=== PATIENT | male | born 1975 | race American Indian/Alaskan Native ===

== ENCOUNTER 2018-03-24 02:38 | Inpatient (IN) | payer OTHER ==
[2018-03-24] MEDS ORDERED: ASPIRIN PO ONE (03:10)
[2018-03-24 03:26] LABS: Basophils # (Auto) 0.2 K/mm3 (0.0-0.1); Basophils % (Auto) 1.5 % (0.0-1.8); Eosinophils # (Auto) 0.4 K/mm3 (0.0-0.4); Eosinophils % (Auto) 3.8 % (0.0-4.3); Hematocrit 41.1 % (35.5-45.6); Hemoglobin 13.8 gm/dl (11.8-15.2); Lymphocytes # (Auto) 3.2 K/mm3 (1.2-5.4); Lymphocytes % (Auto) 29.9 % (13.4-35.0); Mean Corpuscular HGB Conc 34 % (32-34); Mean Corpuscular Hemoglobin 28 pg (28-32); Mean Corpuscular Volume 85 fl (84-94); Monocytes # (Auto) 1.1 K/mm3 (0.0-0.8); Monocytes % (Auto) 10.6 % (0.0-7.3); Platelet Count 323 K/mm3 (140-440); Red Blood Count 4.85 M/mm3 (3.65-5.03); Red Cell Distribution Width 16.8 % (13.2-15.2)
--- NOTE | 2018-03-24 03:29 | XRay Report ---
FINAL REPORT EXAM: XR CHEST ROUTINE 2V HISTORY: SOB TECHNIQUE: PA and lateral views of the chest were submitted. FINDINGS: The heart size is at the upper limits of normal. There are no localized infiltrates or effusions. Mild congestion still cannot be excluded. The bones and soft tissues do not show any acute changes. IMPRESSION: No localized infiltrates or effusions. Mild congestion still cannot be excluded.
[2018-03-24 03:43] LABS: Albumin 3.1 g/dL (3.9-5); Calcium 8.5 mg/dL (8.4-10.2)
[2018-03-24] MEDS ORDERED: CATAPRES PO ONE (04:18)
[2018-03-24 04:34] LABS: Bacteria,Urine 3+ /HPF (Negative); Bilirubin,Urine NEG (Negative); Blood,Urine SM (Negative); Color,Urine Yellow (Yellow); Urobilinogen,Urine < 2.0 mg/dL (<2.0)
[2018-03-24 04:38] LABS: Protein,Urine >500 mg/dL (Negative)
[2018-03-24] MEDS ORDERED: LASIX IV ONE (04:38)
[2018-03-24] MEDS ORDERED: NITRO-BID 2% TP ONE (04:41)
--- NOTE | 2018-03-24 05:00 | Emergency Department Report ---
ED Shortness of Breath HPI - General Chief Complaint: Chest Pain Stated Complaint: CHEST PAIN Time Seen by Provider: 03/24/18 04:30 Source: patient Mode of arrival: Ambulatory Limitations: No Limitations - History of Present Illness Initial Comments: 42-year-old male with a past medical history of obesity, sleep apnea, hypertension, diabetes and possible renal insufficiency presents to Hospital complaints of shortness of breath worsening for the past days. Patient is having trouble sleeping due to symptoms. His CPAP does help. Dyspnea worsens with exertion as well and positive associated lower extremity/ankle edema. Patient's been noncompliant with all medications since release from detention February 16. He denies chest pain. No previous echocardiogram or stress test. No pmd - Related Data Allergies Allergy/AdvReac Type Severity Reaction Status Date / Time No Known Allergies Allergy Verified 03/24/18 04:38 ED Review of Systems ROS: Stated complaint: CHEST PAIN Other details as noted in HPI Comment: All other systems reviewed and negative ED Past Medical Hx - Past Medical History Previous Medical History?: Yes Hx Hypertension: Yes Hx Diabetes: Yes Additional medical history: sleep Apnea/CPAP - Surgical History Past Surgical History?: No - Social History Smoking Status: Current Every Day Smoker Substance Use Type: Marijuana ED Physical Exam - General Limitations: No Limitations - Other Other exam information: General: No limitations, patient is alert in no acute distress Head exam: Atraumatic, normocephalic Eyes exam: Normal appearance, pupils equal reactive to light, extraocular movements intact ENT: Moist mucous membrane, normal oropharynx Neck exam: Normal inspection, full range of motion, no meningismus nontender Respiratory exam: Mild crackles at the bases Cardiovascular: Normal rate and rhythm, normal heart sounds Abdomen: Soft, nondistended, and nontender, with normal bowel sounds, no rebound, or guarding Extremity: Full range of motion him a lower extremity edema, no calf tenderness or leg asymmetry Back: Normal Inspection, full range of motion, no tenderness Neurologic: Alert, oriented x3, cranial nerves intact, no motor or sensory deficit Psychiatric: normal affect, normal mood Skin: Warm, dry, intact ED Course Vital Signs 03/24/18 03/24/18 03/24/18 02:37 04:03 04:16 Temperature 98.2 F Pulse Rate 93 H 85 Respiratory 18 18 Rate Blood Pressure 209/123 194/128 Blood Pressure [Left] O2 Sat by Pulse 97 98 Oximetry 05/13/18 05/13/18 05/13/18 04:19 04:21 04:26 Temperature 98.4 F 98.4 F Pulse Rate 84 84 84 Respiratory 20 20 Rate Blood Pressure 194/128 Blood Pressure 194/128 194/128 [Left] O2 Sat by Pulse 98 98 Oximetry 03/24/18 03/24/18 03/24/18 04:30 04:33 04:46 Temperature Pulse Rate 91 H 92 H Respiratory 21 15 Rate Blood Pressure 193/117 194/128 Blood Pressure [Left] O2 Sat by Pulse 98 98 97 Oximetry 03/24/18 04:51 Temperature Pulse Rate 87 Respiratory Rate Blood Pressure 187/114 Blood Pressure [Left] O2 Sat by Pulse Oximetry - Reevaluation(s) Reevaluation #1: 03/24/18 05:15 bipap initiated since pt c/o sob ED Medical Decision Making - Lab Data Result diagrams: 03/24/18 03:13 03/24/18 03:13 Lab Results 03/24/18 03/24/18 03/24/18 Range/Units 03:13 03:13 03:58 WBC 10.6 (4.5-11.0) K/mm3 RBC 4.85 (3.65-5.03) M/mm3 Hgb 13.8 (11.8-15.2) gm/dl Hct 41.1 (35.5-45.6) % MCV 85 (84-94) fl MCH 28 (28-32) pg MCHC 34 (32-34) % RDW 16.8 H (13.2-15.2) % Plt Count 323 (140-440) K/mm3 Lymph % (Auto) 29.9 (13.4-35.0) % [place] % (Auto) 10.6 H (0.0-7.3) % Eos % (Auto) 3.8 (0.0-4.3) % Baso % (Auto) 1.5 (0.0-1.8) % Lymph # 3.2 (1.2-5.4) K/mm3 [place] # 1.1 H (0.0-0.8) K/mm3 Eos # 0.4 (0.0-0.4) K/mm3 Baso # 0.2 H (0.0-0.1) K/mm3 Seg Neutrophils % 54.2 (40.0-70.0) % Seg Neutrophils # 5.8 (1.8-7.7) K/mm3 Sodium 139 (137-145) mmol/L Potassium 4.8 (3.6-5.0) mmol/L Chloride 104.9 (98-107) mmol/L Carbon Dioxide 24 (22-30) mmol/L Anion Gap 15 mmol/L BUN 22 H (9-20) mg/dL Creatinine 2.4 H (0.8-1.5) mg/dL Estimated GFR 30 ml/min BUN/Creatinine Ratio 9 % Glucose 178 H (75-100) mg/dL Calcium 8.5 (8.4-10.2) mg/dL Total Bilirubin 0.20 (0.1-1.2) mg/dL AST 15 (5-40) units/L ALT 17 (7-56) units/L Alkaline Phosphatase 88 (35-129) units/L Troponin T 0.019 (0.00-0.029) ng/mL NT-Pro-B Natriuret Pep (0-450) pg/mL Total Protein 6.2 L (6.3-8.2) g/dL Albumin 3.1 L (3.9-5) g/dL Albumin/Globulin Ratio 1.0 % Urine Color Yellow (Yellow) Urine Turbidity Clear (Clear) Urine pH 5.0 (5.0-7.0) Ur Specific [place] 1.014 (1.003-1.030) Urine Protein >500 (Negative) mg/dL Urine Glucose (UA) 150 (Negative) mg/dL Urine Ketones Neg (Negative) mg/dL Urine Blood Sm (Negative) Urine Nitrite Neg (Negative) Urine Bilirubin Neg (Negative) Urine Urobilinogen < 2.0 (<2.0) mg/dL Ur Leukocyte Esterase Neg (Negative) Urine WBC (Auto) 9.0 H (0.0-6.0) /HPF Urine RBC (Auto) 9.0 (0.0-6.0) /HPF U Epithel Cells (Auto) 1.0 (0-13.0) /HPF Urine Bacteria (Auto) 3+ (Negative) /HPF 03/24/18 Range/Units Unknown WBC (4.5-11.0) K/mm3 RBC (3.65-5.03) M/mm3 Hgb (11.8-15.2) gm/dl Hct (35.5-45.6) % MCV (84-94) fl MCH (28-32) pg MCHC (32-34) % RDW (13.2-15.2) % Plt Count (140-440) K/mm3 Lymph % (Auto) (13.4-35.0) % [place] % (Auto) (0.0-7.3) % Eos % (Auto) (0.0-4.3) % Baso % (Auto) (0.0-1.8) % Lymph # (1.2-5.4) K/mm3 [place] # (0.0-0.8) K/mm3 Eos # (0.0-0.4) K/mm3 Baso # (0.0-0.1) K/mm3 Seg Neutrophils % (40.0-70.0) % Seg Neutrophils # (1.8-7.7) K/mm3 Sodium (137-145) mmol/L Potassium (3.6-5.0) mmol/L Chloride (98-107) mmol/L Carbon Dioxide (22-30) mmol/L Anion Gap mmol/L BUN (9-20) mg/dL Creatinine (0.8-1.5) mg/dL Estimated GFR ml/min BUN/Creatinine Ratio % Glucose (75-100) mg/dL Calcium (8.4-10.2) mg/dL Total Bilirubin (0.1-1.2) mg/dL AST (5-40) units/L ALT (7-56) units/L Alkaline Phosphatase (35-129) units/L Troponin T (0.00-0.029) ng/mL NT-Pro-B Natriuret Pep 1418 H (0-450) pg/mL Total Protein (6.3-8.2) g/dL Albumin (3.9-5) g/dL Albumin/Globulin Ratio % Urine Color (Yellow) Urine Turbidity (Clear) Urine pH (5.0-7.0) Ur Specific [place] (1.003-1.030) Urine Protein (Negative) mg/dL Urine Glucose (UA) (Negative) mg/dL Urine Ketones (Negative) mg/dL Urine Blood (Negative) Urine Nitrite (Negative) Urine Bilirubin (Negative) Urine Urobilinogen (<2.0) mg/dL Ur Leukocyte Esterase (Negative) Urine WBC (Auto) (0.0-6.0) /HPF Urine RBC (Auto) (0.0-6.0) /HPF U Epithel Cells (Auto) (0-13.0) /HPF Urine Bacteria (Auto) (Negative) /HPF - EKG Data -: EKG Interpreted by Me EKG shows normal: sinus rhythm, axis (qrs 46), QRS complexes (qrsd 113), ST-T waves (lat and inv t wave inv) Rate: normal (90) - EKG Data When compared to previous EKG there are: previous EKG unavailable - Radiology Data Radiology results: report reviewed cxr IMPRESSION: No localized infiltrates or effusions. Mild congestion still cannot be excluded. - Medical Decision Making sob/+ chf new onset elevated bnp, + congestion cxr Lasix 40mg Nitro escobedo 1/2 inch htn noncomplance Clonidine 0.2mg renal insuf ? hx baseline unknown sleep apnea chronic bipap dm noncompliant glucose mildly elevated no previous card workup will be admitted for further treatment - Differential Diagnosis chf, mi, unstable angina, sleep apnea, htn emergency, pneumonia Critical Care Time: No Critical care attestation.: If time is entered above; I have spent that time in minutes in the direct care of this critically ill patient, excluding procedure time. ED Disposition Clinical Impression: HTN (hypertension), CHF (congestive heart failure), Renal insufficiency, Obesity, Sleep apnea, Noncompliance with medication regimen Disposition: OP ADMIT IP TO THIS HOSP Is pt being admited?: Yes Condition: Stable Time of Disposition: 05:02 (DR Cali/hosp)
[2018-03-24] MEDS ORDERED: SODIUM CHLORIDE FLUSH SYRINGE 10 ML IV PRN (05:27)
[2018-03-24] MEDS ORDERED: TYLENOL PO PRN (05:27)
[2018-03-24] MEDS ORDERED: D50W (25GM) Syringe IV PRN (05:27)
[2018-03-24] MEDS ORDERED: ZOFRAN IV PRN (05:27)
[2018-03-24] MEDS ORDERED: APRESOLINE IV PRN (05:54)
--- NOTE | 2018-03-24 05:59 | History and Physical Report ---
History of Present Illness Date of examination: 03/24/18 History of present illness: 42-year-old man history of hypertension, diabetes, sleep apnea, see my concern with complaints of shortness breath, PND and ankle extremity edema. He complains of phlegm, unclear what color it is. Since he was discharged from prison February 26, he has not taken any of his medications. Review of systems Constitutional: no weight loss, chills Ears, eyes, nose, mouth and throat: no nasal congestion, no nasal discharge, no sinus pressure, no vision change, no red eye. Neck: No neck pain or rigidity. Cardiovascular: no chest pain, palpitations Respiratory:+cough, shortness of breath Gastrointestinal: no abdominal pain, hematochezia Genitourinary : no dysuria, frequency , no hematuria Musculoskeletal: no joint swelling or muscle ache Integumentary: no rash, no pruritis Neurological: no parathesias, no numbness, no focal weakness Endocrine: no cold or heat intolerance, no polyuria or polydipsia Hematologic/Lymphatic: no easy bruising, no easy bleeding, no gland swelling Allergic/Immunologic: no urticaria, no angioedema. PAST MEDICAL HISTORY:hypertension, diabetes, sleep apnea PAST SURGICAL HISTORY: None SOCIAL HISTORY: Smokes cigars, marijuana use, no alcohol FAMILY HISTORY: Hypertension Medications and Allergies Allergies Allergy/AdvReac Type Severity Reaction Status Date / Time No Known Allergies Allergy Verified 03/24/18 04:38 Home Medications Medication Instructions Recorded Confirmed Last Taken Type No Known Home Medications [No 03/24/18 03/24/18 Unknown History Reported Home Medications] Active Meds: Active Medications Acetaminophen (Tylenol) 650 mg PO Q4H PRN PRN Reason: Pain MILD(1-3)/Fever >100.5/KATHLEEN Dextrose (D50w (25gm) Syringe) 50 ml IV PRN PRN PRN Reason: Hypoglycemia Enoxaparin Sodium (Lovenox) 40 mg SUB-Q QDAY@1000 [facility] Furosemide (Lasix) 40 mg IV 0600,1800 [facility] Hydralazine HCl (Apresoline) 5 mg IV Q6HR PRN PRN Reason: Hypertension Insulin Human Lispro (Humalog) 0 unit SUB-Q ACHS [facility]; Protocol Metoprolol Tartrate (Lopressor) 25 mg PO BID [facility] Ondansetron HCl (Zofran) 4 mg IV Q8H PRN PRN Reason: Nausea And Vomiting Sodium Chloride (Sodium Chloride Flush Syringe 10 Ml) 10 ml IV BID [facility] Sodium Chloride (Sodium Chloride Flush Syringe 10 Ml) 10 ml IV PRN PRN PRN Reason: LINE FLUSH Exam - Physical Exam Narrative exam: Gen. appearance: Patient lying in bed, no apparent distress HEENT: Normocephalic, atraumatic, pupils equally round and reactive to light, extraocular movement intact, and no sclericterus,. No JVD or thyromegaly or nodule,neck supple, no carotid bruit ,mucous membranes moist, no exudate or erythema Heart: S1, S2, regular rate and rhythm Lungs: Decreased breath sounds at bases bilaterally, breathing comfortable Abdomen: Positive bowel sounds, nontender, nondistended, no organomegaly Extremity: Trace ankle edema, no cyanosis, clubbing Skin: No rash, nodules, warm, dry Neuro: Oriented 3, cranial nerves II-12 intact, speech is fluent, motor and sensory intact - Constitutional Vitals: Temp Pulse Resp BP Pulse Ox 98.4 F 87 18 172/111 97 03/24/18 04:21 03/24/18 05:16 03/24/18 05:16 03/24/18 05:16 03/24/18 04:46 Results - Labs CBC & Chem 7: 03/24/18 03:13 03/24/18 03:13 Labs: Abnormal lab results 03/24/18 03/24/18 03/24/18 Range/Units 03:13 03:13 03:58 RDW 16.8 H (13.2-15.2) % [place] % (Auto) 10.6 H (0.0-7.3) % [place] # 1.1 H (0.0-0.8) K/mm3 Baso # 0.2 H (0.0-0.1) K/mm3 BUN 22 H (9-20) mg/dL Creatinine 2.4 H (0.8-1.5) mg/dL Glucose 178 H (75-100) mg/dL NT-Pro-B Natriuret Pep (0-450) pg/mL Total Protein 6.2 L (6.3-8.2) g/dL Albumin 3.1 L (3.9-5) g/dL Urine WBC (Auto) 9.0 H (0.0-6.0) /HPF 03/24/18 Range/Units Unknown RDW (13.2-15.2) % [place] % (Auto) (0.0-7.3) % [place] # (0.0-0.8) K/mm3 Baso # (0.0-0.1) K/mm3 BUN (9-20) mg/dL Creatinine (0.8-1.5) mg/dL Glucose (75-100) mg/dL NT-Pro-B Natriuret Pep 1418 H (0-450) pg/mL Total Protein (6.3-8.2) g/dL Albumin (3.9-5) g/dL Urine WBC (Auto) (0.0-6.0) /HPF - Imaging and Cardiology EKG: image reviewed Chest x-ray: image reviewed Assessment and Plan Assessment Hypertensive urgency, malignant ? CHF Diabetes Renal failure probably chronic Sleep apnea Plan Admit to medicine Start IV Lasix, aspirin, beta romel, no TONY inhibitor for now due to renal failure IV Hydralazine, check cardiac enzymes, echo, consult cardiology Check fingersticks initiate insulin sliding scale DVT prophylaxis cpap at night
[2018-03-24] MEDS: LASIX IV SCH ×2 (06:13→18:19)
[2018-03-24 06:21] LABS: Creatine Kinase MB 7.7 ng/mL (0.0-4.0)
[2018-03-24] MEDS: HumaLOG SUB-Q SCH ×4 (07:30→22:32)
--- NOTE | 2018-03-24 09:04 | Progress Note ---
Assessment and Plan Assessment and plan: Mr. Burk is a 42-year-old man w/ a history of hypertension, diabetes, sleep apnea, see my concern with complaints of shortness breath, PND and ankle extremity edema. He complains of phlegm, unclear what color it is. Since he was discharged from residential February 26, he has not taken any of his medications. (No prior hospitalizations here) 2v CXR, no infiltrates or effusion, mild congestion cannot be excluded proBNP 1418 Cr 2.4 D-Dimer elevated 724 Assessment Hypertensive urgency, malignant ? CHF Diabetes Renal failure probably chronic Sleep apnea Plan Admit to medicine Start IV Lasix, aspirin, beta romel, no TONY inhibitor for now due to renal failure IV Hydralazine, check cardiac enzymes, echo, consult cardiology Check fingersticks initiate insulin sliding scale DVT prophylaxis cpap at night get v/q scan due to elevated d-dimer get leg doppler History Interval history: Admitted Today Hospitalist Physical - Constitutional Vitals: Temp Pulse Resp BP Pulse Ox 98.4 F 80 19 156/111 99 03/24/18 04:21 03/24/18 08:00 03/24/18 08:00 03/24/18 08:00 03/24/18 07:30 Results - Labs CBC & Chem 7: 03/24/18 03:13 03/24/18 03:13 Labs: Laboratory Last Values WBC 10.6 K/mm3 (4.5-11.0) 03/24/18 03:13 RBC 4.85 M/mm3 (3.65-5.03) 03/24/18 03:13 Hgb 13.8 gm/dl (11.8-15.2) 03/24/18 03:13 Hct 41.1 % (35.5-45.6) 03/24/18 03:13 MCV 85 fl (84-94) 03/24/18 03:13 MCH 28 pg (28-32) 03/24/18 03:13 MCHC 34 % (32-34) 03/24/18 03:13 RDW 16.8 % (13.2-15.2) H 03/24/18 03:13 Plt Count 323 K/mm3 (140-440) 03/24/18 03:13 Lymph % (Auto) 29.9 % (13.4-35.0) 03/24/18 03:13 [place] % (Auto) 10.6 % (0.0-7.3) H 03/24/18 03:13 Eos % (Auto) 3.8 % (0.0-4.3) 03/24/18 03:13 Baso % (Auto) 1.5 % (0.0-1.8) 03/24/18 03:13 Lymph # 3.2 K/mm3 (1.2-5.4) 03/24/18 03:13 [place] # 1.1 K/mm3 (0.0-0.8) H 03/24/18 03:13 Eos # 0.4 K/mm3 (0.0-0.4) 03/24/18 03:13 Baso # 0.2 K/mm3 (0.0-0.1) H 03/24/18 03:13 Seg Neutrophils % 54.2 % (40.0-70.0) 03/24/18 03:13 Seg Neutrophils # 5.8 K/mm3 (1.8-7.7) 03/24/18 03:13 D-Dimer 724.01 ng/mlDDU (0-234) H 03/24/18 05:48 Sodium 139 mmol/L (137-145) 03/24/18 03:13 Potassium 4.8 mmol/L (3.6-5.0) 03/24/18 03:13 Chloride 104.9 mmol/L (98-107) 03/24/18 03:13 Carbon Dioxide 24 mmol/L (22-30) 03/24/18 03:13 Anion Gap 15 mmol/L 03/24/18 03:13 BUN 22 mg/dL (9-20) H 03/24/18 03:13 Creatinine 2.4 mg/dL (0.8-1.5) H 03/24/18 03:13 Estimated GFR 30 ml/min 03/24/18 03:13 BUN/Creatinine Ratio 9 % 03/24/18 03:13 Glucose 178 mg/dL (75-100) H 03/24/18 03:13 POC Glucose 161 (70-105) H 03/24/18 07:10 Calcium 8.5 mg/dL (8.4-10.2) 03/24/18 03:13 Total Bilirubin 0.20 mg/dL (0.1-1.2) 03/24/18 03:13 AST 15 units/L (5-40) 03/24/18 03:13 ALT 17 units/L (7-56) 03/24/18 03:13 Alkaline Phosphatase 88 units/L (35-129) 03/24/18 03:13 Total Creatine Kinase 805 units/L (55-170) H 03/24/18 05:48 CK-MB (CK-2) 7.7 ng/mL (0.0-4.0) H 03/24/18 05:48 CK-MB (CK-2) Rel Index 0.9 (0-4) 03/24/18 05:48 Troponin T 0.025 ng/mL (0.00-0.029) 03/24/18 05:48 NT-Pro-B Natriuret Pep 1418 pg/mL (0-450) H 03/24/18 Unknown Total Protein 6.2 g/dL (6.3-8.2) L 03/24/18 03:13 Albumin 3.1 g/dL (3.9-5) L 03/24/18 03:13 Albumin/Globulin Ratio 1.0 % 03/24/18 03:13 Urine Color Yellow (Yellow) 03/24/18 03:58 Urine Turbidity Clear (Clear) 03/24/18 03:58 Urine pH 5.0 (5.0-7.0) 03/24/18 03:58 Ur Specific [place] 1.014 (1.003-1.030) 03/24/18 03:58 Urine Protein >500 mg/dL (Negative) 03/24/18 03:58 Urine Glucose (UA) 150 mg/dL (Negative) 03/24/18 03:58 Urine Ketones Neg mg/dL (Negative) 03/24/18 03:58 Urine Blood Sm (Negative) 03/24/18 03:58 Urine Nitrite Neg (Negative) 03/24/18 03:58 Urine Bilirubin Neg (Negative) 03/24/18 03:58 Urine Urobilinogen < 2.0 mg/dL (<2.0) 03/24/18 03:58 Ur Leukocyte Esterase Neg (Negative) 03/24/18 03:58 Urine WBC (Auto) 9.0 /HPF (0.0-6.0) H 03/24/18 03:58 Urine RBC (Auto) 9.0 /HPF (0.0-6.0) 03/24/18 03:58 U Epithel Cells (Auto) 1.0 /HPF (0-13.0) 03/24/18 03:58 Urine Bacteria (Auto) 3+ /HPF (Negative) 03/24/18 03:58
[2018-03-24] MEDS ORDERED: APRESOLINE PO SCH (10:00)
[2018-03-24] MEDS ORDERED: LOVENOX SUB-Q SCH (10:00)
[2018-03-24] MEDS ORDERED: LOPRESSOR PO SCH (10:00)
[2018-03-24] MEDS: LOVENOX SUB-Q SCH (11:01)
[2018-03-24] MEDS: NORVASC PO SCH (11:01)
[2018-03-24] MEDS: BABY ASPIRIN PO SCH (11:02)
[2018-03-24] MEDS: SODIUM CHLORIDE FLUSH SYRINGE 10 ML IV SCH ×2 (11:04→22:33)
--- NOTE | 2018-03-24 11:59 | Consultation ---
History of Present Illness Consult date: 03/24/18 Requesting physician: MALIKA HEWITT Consult reason: congestive heart failure, other (hypertensive emergency) History of present illness: The patient has a history of hypertension. He claims that he ran out of his medications since 02/26/2018. Last night, he woke up to go to the restroom and suddenly developed shortness of breath. There was no chest pain. His blood pressure was severely elevated upon presentation. Past History Past Medical History: diabetes, hypertension, other (JULIAN) Past Surgical History: No surgical history Social history: single (no children), smoking, other (social drinker) Family history: denies: CAD Medications and Allergies Allergies Allergy/AdvReac Type Severity Reaction Status Date / Time No Known Allergies Allergy Verified 03/24/18 04:38 Home Medications Medication Instructions Recorded Confirmed Last Taken Type No Known Home Medications [No 03/24/18 03/24/18 Unknown History Reported Home Medications] Active Meds: Active Medications Acetaminophen (Tylenol) 650 mg PO Q4H PRN PRN Reason: Pain MILD(1-3)/Fever >100.5/KATHLEEN Amlodipine Besylate (Norvasc) 10 mg PO QDAY [facility] Last Admin: 03/24/18 11:01 Dose: 10 mg Aspirin (Baby Aspirin) 81 mg PO QDAY [facility] Last Admin: 03/24/18 11:02 Dose: 81 mg Dextrose (D50w (25gm) Syringe) 50 ml IV PRN PRN PRN Reason: Hypoglycemia Enoxaparin Sodium (Lovenox) 40 mg SUB-Q QDAY@1000 [facility] Last Admin: 03/24/18 11:01 Dose: 40 mg Furosemide (Lasix) 40 mg IV 0600,1800 [facility] Last Admin: 03/24/18 06:13 Dose: Not Given Hydralazine HCl (Apresoline) 100 mg PO BID [facility] Last Admin: 03/24/18 11:02 Dose: 100 mg Insulin Human Lispro (Humalog) 0 unit SUB-Q [facility]; Protocol Metoprolol Tartrate (Lopressor) 50 mg PO TID [facility] Ondansetron HCl (Zofran) 4 mg IV Q8H PRN PRN Reason: Nausea And Vomiting Sodium Chloride (Sodium Chloride Flush Syringe 10 Ml) 10 ml IV BID [facility] Last Admin: 03/24/18 11:04 Dose: 10 ml Sodium Chloride (Sodium Chloride Flush Syringe 10 Ml) 10 ml IV PRN PRN PRN Reason: LINE FLUSH Review of Systems Constitutional: no fever, no chills Ears, nose, mouth and throat: no ear pain, no ear discharge, no sore throat Cardiovascular: edema, shortness of breath, no chest pain, no palpitations Respiratory: shortness of breath, no cough, no hemoptysis Gastrointestinal: no abdominal pain, no nausea, no vomiting, no diarrhea, no constipation Genitourinary Male: no dysuria, no urinary frequency Musculoskeletal: no neck stiffness, no neck pain, no myalgias Integumentary: no rash, no pruritis Neurological: no weakness, no parathesias, no headaches Endocrine: no cold intolerance, no heat intolerance Hematologic/Lymphatic: no easy bruising, no easy bleeding Allergic/Immunologic: no urticaria, no wheezing Physical Examination Vital Signs Last Vital Signs Temp 98.2 F 03/24/18 09:00 Pulse 80 03/24/18 09:00 Resp 20 03/24/18 09:00 BP 163/117 03/24/18 11:02 Pulse Ox 97 03/24/18 09:25 General appearance: no acute distress HEENT: Positive: EOMI, Normocephaly, Mucus Membranes Moist Neck: Positive: neck supple, trachea midline Cardiac: Positive: Reg Rate and Rhythm, S1/S2 Lungs: Positive: clear to auscultation Neuro: Positive: Grossly Intact Abdomen: Positive: Soft, Active Bowel Sounds. Negative: Tender Skin: Positive: Clear. Negative: Rash Musculoskeletal: Normal Range of Motion Extremities: Present: normal, +1 Edema (pitting bilateral leg edema) Results 03/24/18 03:13 03/24/18 03:13 Cardiac Enzymes 03/24/18 03/24/18 Range/Units 03:13 05:48 AST 15 (5-40) units/L CK-MB (CK-2) 7.7 H (0.0-4.0) ng/mL CBC 03/24/18 Range/Units 03:13 WBC 10.6 (4.5-11.0) K/mm3 RBC 4.85 (3.65-5.03) M/mm3 Hgb 13.8 (11.8-15.2) gm/dl Hct 41.1 (35.5-45.6) % Plt Count 323 (140-440) K/mm3 Lymph # 3.2 (1.2-5.4) K/mm3 [place] # 1.1 H (0.0-0.8) K/mm3 Eos # 0.4 (0.0-0.4) K/mm3 Baso # 0.2 H (0.0-0.1) K/mm3 Comprehensive Metabolic Panel 03/24/18 Range/Units 03:13 Sodium 139 (137-145) mmol/L Potassium 4.8 (3.6-5.0) mmol/L Chloride 104.9 (98-107) mmol/L Carbon Dioxide 24 (22-30) mmol/L BUN 22 H (9-20) mg/dL Creatinine 2.4 H (0.8-1.5) mg/dL Glucose 178 H (75-100) mg/dL Calcium 8.5 (8.4-10.2) mg/dL AST 15 (5-40) units/L ALT 17 (7-56) units/L Alkaline Phosphatase 88 (35-129) units/L Total Protein 6.2 L (6.3-8.2) g/dL Albumin 3.1 L (3.9-5) g/dL - Imaging and Cardiology EKG: image reviewed EKG interpretations - Telemetry EKG Rhythm: Sinus Rhythm - EKG Sinus rhythms and dysrhythmias: sinus rhythm Repolarization changes or abnormalities: ST or T wave suggestive of ischemia Assessment and Plan Intravenous diuretics, optimize antihypertensive regimen, and obtain echocardiogram. - Patient Problems (1) Hypertensive emergency Current Visit: Yes Status: Acute (2) Acute heart failure Current Visit: Yes Status: Acute (3) CKD (chronic kidney disease) Current Visit: Yes Status: Chronic Qualifiers: Chronic kidney disease stage: stage 3 (moderate) Qualified Code(s): N18.3 - Chronic kidney disease, stage 3 (moderate) (4) Obstructive sleep apnea Current Visit: Yes Status: Chronic (5) Elevated d-dimer Current Visit: Yes Status: Acute (6) Diabetes mellitus Current Visit: Yes Status: Acute Qualifiers: Diabetes mellitus type: type 2
[2018-03-24 12:11] LABS: Creatine Kinase MB 7.2 ng/mL (0.0-4.0)
--- NOTE | 2018-03-24 15:07 | Nuclear Medicine Report ---
FINAL REPORT EXAM: NM LUNG SCAN PERF/VENT HISTORY: d-dimer elevated TECHNIQUE: Nuclear medicine lung VQ scan performed using approximately 15.0 mCi of xenon-133 gas and 5.0 mCi of technetium 99m MAA, respectively. Planar images of lungs obtained during both phases. PRIORS: Chest x-ray of same date. FINDINGS: Ventilation scan shows near homogenous radionuclide accumulation, with mild delayed washout, which may represent some chronic obstructive changes. Perfusion scan shows near homogeneous radionuclide accumulation conforming to the outlines of both lungs. No significant, segmental or mismatched defects identified. IMPRESSION: 1. Within normal limits.
[2018-03-24] MEDS: LOPRESSOR PO SCH ×2 (16:07→22:33)
[2018-03-24] MEDS: APRESOLINE PO SCH ×2 (16:08→22:33)
[2018-03-25] MEDS: LASIX IV SCH ×2 (05:12→19:54)
[2018-03-25 06:04] LABS: Basophils # (Auto) 0.1 K/mm3 (0.0-0.1); Basophils % (Auto) 1.2 % (0.0-1.8); Eosinophils # (Auto) 0.4 K/mm3 (0.0-0.4); Eosinophils % (Auto) 3.8 % (0.0-4.3); Hemoglobin 14.1 gm/dl (11.8-15.2); Lymphocytes # (Auto) 3.1 K/mm3 (1.2-5.4); Lymphocytes % (Auto) 32.1 % (13.4-35.0); Mean Corpuscular HGB Conc 34 % (32-34); Mean Corpuscular Hemoglobin 28 pg (28-32); Mean Corpuscular Volume 84 fl (84-94); Platelet Count 317 K/mm3 (140-440); Red Cell Distribution Width 17.2 % (13.2-15.2)
[2018-03-25 06:14] LABS: Calcium 8.5 mg/dL (8.4-10.2)
[2018-03-25] MEDS: HumaLOG SUB-Q SCH ×4 (08:00→22:34)
--- NOTE | 2018-03-25 10:19 | Progress Note ---
Assessment and Plan Acute on chronic kidney disease Consider renal consult Accelerated hypertension Continue amlodipine, hydralazine 100 TID, recommend changing metoprolol to carvedilol Follow up with Dr. Steiner [phone] as outpatient Congestive heart failure ECHO pending continue lasix 40 IV BID strict I/O Noncompliance Obesity Sleep apnea Diabetes Subjective Date of service: 03/25/18 Principal diagnosis: CHF, Accelerated HTN, KAREN Interval history: Patient is sitting up in bed without complaints. Reports that he does not know of any history of coronary disease but has been told in the past that he had kidney disease. The patient reports that the last time he was hospitalized was in [place]. The patient reports that he does not have a primary care provider , cell inspector, or assistant manager/embalmer. Objective Vital Signs Temp Pulse Resp BP Pulse Ox 03/25/18 04:59 98.4 F 79 18 166/115 97 03/25/18 00:01 87 18 162/108 94 03/25/18 00:00 84 98 03/24/18 23:26 93 H 18 97 03/24/18 22:00 87 03/24/18 20:32 97 03/24/18 20:31 99.0 F 87 18 168/107 98 03/24/18 16:07 169/117 03/24/18 15:23 98.0 F 86 20 195/118 95 03/24/18 11:02 163/117 03/24/18 11:01 163/117 - Physical Examination General: Appears Well, No Apparent Distress HEENT: Positive: EOMI, Normocephaly, Mucus Membranes Moist Neck: Positive: neck supple, trachea midline Cardiac: Positive: Reg Rate and Rhythm Lungs: Positive: Normal Exam, Normal Breath Sounds Neuro: Positive: Grossly Intact Abdomen: Positive: Soft, Active Bowel Sounds. Negative: Tender Skin: Positive: Clear. Negative: Rash Musculoskeletal: Normal Range of Motion Extremities: Present: normal, +1 Edema (pitting bilateral leg edema) - Labs and Meds Cardiac Enzymes 03/24/18 Range/Units 11:24 CK-MB (CK-2) 7.2 H (0.0-4.0) ng/mL CBC 03/25/18 Range/Units 05:20 WBC 9.6 (4.5-11.0) K/mm3 RBC 5.00 (3.65-5.03) M/mm3 Hgb 14.1 (11.8-15.2) gm/dl Hct 42.0 (35.5-45.6) % Plt Count 317 (140-440) K/mm3 Lymph # 3.1 (1.2-5.4) K/mm3 [place] # 1.0 H (0.0-0.8) K/mm3 Eos # 0.4 (0.0-0.4) K/mm3 Baso # 0.1 (0.0-0.1) K/mm3 Comprehensive Metabolic Panel 03/25/18 Range/Units 05:20 Sodium 138 (137-145) mmol/L Potassium 4.4 (3.6-5.0) mmol/L Chloride 101.3 (98-107) mmol/L Carbon Dioxide 25 (22-30) mmol/L BUN 25 H (9-20) mg/dL Creatinine 2.3 H (0.8-1.5) mg/dL Glucose 155 H (75-100) mg/dL Calcium 8.5 (8.4-10.2) mg/dL - Imaging and Cardiology EKG: image reviewed Nuclear stress test: report reviewed (V/Q Scan: low probability for PE) Echo: pending - EKG Sinus rhythms and dysrhythmias: sinus rhythm Repolarization changes or abnormalities: ST or T wave suggestive of ischemia
[2018-03-25] MEDS: NORVASC PO SCH (10:52)
[2018-03-25] MEDS: BABY ASPIRIN PO SCH (10:52)
[2018-03-25] MEDS: LOVENOX SUB-Q SCH (10:53)
[2018-03-25] MEDS: SODIUM CHLORIDE FLUSH SYRINGE 10 ML IV SCH ×2 (10:54→21:21)
[2018-03-25] MEDS: APRESOLINE PO SCH ×3 (10:57→21:17)
[2018-03-25] MEDS: COREG PO SCH ×2 (10:57→21:20)
--- NOTE | 2018-03-25 18:37 | Progress Note ---
Assessment and Plan - Hypertensive urgency, malignant Optimize BP control 2gm Na+ diet - Heart failure Pendign systolic function evaluation Continue with strict Is and OS Daily weight ACEI, BB, diuretic and spironolactone - T2DM SSI Consistent CHO diet. check A1c - Renal failure probably chronic Avoid nephrotoxic substance Renal diet, Renal US Nephrology consulted - Sleep apnea cpap at night DVT prophylaxis with levenox Subjective Date of service: 03/25/18 Principal diagnosis: CHF, Accelerated HTN, KAREN Interval history: still haivng shortness of breath Objective - Constitutional Vitals: Vital Signs - 12hr 03/25/18 03/25/18 03/25/18 10:00 10:52 10:57 Temperature Pulse Rate 80 81 81 Pulse Rate [ 90 Right Radial] Respiratory Rate Blood Pressure 169/110 169/110 Blood Pressure [Left] O2 Sat by Pulse Oximetry 03/25/18 03/25/18 03/25/18 11:09 13:00 14:59 Temperature 98.4 F 98.2 F 99.1 F Pulse Rate 87 93 H 99 H Pulse Rate [ Right Radial] Respiratory 20 18 20 Rate Blood Pressure 188/114 165/102 Blood Pressure 144/92 [Left] O2 Sat by Pulse 96 98 99 Oximetry General appearance: Present: no acute distress, well-nourished - EENT Eyes: PERRL, EOM intact - Neck Neck: supple, normal ROM - Respiratory Respiratory effort: normal Respiratory: bilateral: CTA - Cardiovascular Rhythm: regular Heart Sounds: Present: S1 & S2. Absent: gallop, rub Extremities: pulses intact, No edema, normal color, Full ROM - Gastrointestinal General gastrointestinal: Present: soft, non-tender, non-distended, normal bowel sounds - Integumentary Integumentary: clear, warm, dry - Musculoskeletal Musculoskeletal: 1, strength equal bilaterally - Psychiatric Psychiatric: memory intact, appropriate mood/affect, intact judgment & insight - Labs CBC & Chem 7: 03/25/18 05:20 03/25/18 05:20 Labs: Abnormal lab results 03/24/18 03/25/18 03/25/18 Range/Units 22:25 05:20 05:20 RDW 17.2 H (13.2-15.2) % Wilson % (Auto) 10.0 H (0.0-7.3) % Wilson # 1.0 H (0.0-0.8) K/mm3 BUN 25 H (9-20) mg/dL Creatinine 2.3 H (0.8-1.5) mg/dL Glucose 155 H (75-100) mg/dL POC Glucose 200 H (70-105) 03/25/18 03/25/18 03/25/18 Range/Units 07:01 11:16 15:05 RDW (13.2-15.2) % Wilson % (Auto) (0.0-7.3) % Wilson # (0.0-0.8) K/mm3 BUN (9-20) mg/dL Creatinine (0.8-1.5) mg/dL Glucose (75-100) mg/dL POC Glucose 158 H 139 H 178 H (70-105)
[2018-03-25] MEDS ORDERED: D50W (25GM) Syringe IV PRN (19:33)
[2018-03-25] MEDS: LOPRESSOR PO SCH (20:12)
[2018-03-25 20:28] LABS: Chol/HDL Ratio 8.18 %
[2018-03-25] MEDS: AMARYL PO SCH (21:18)
[2018-03-25 21:56] LABS: Creatinine,Urine 15.5 mg/dL (0.1-20.0)
[2018-03-25 22:21] LABS: Microalbumin/Creatinine Ratio 3625.8 ug/mg
[2018-03-26] MEDS: LASIX IV SCH ×2 (05:10→18:43)
[2018-03-26 07:11] LABS: Basophils # (Auto) 0.1 K/mm3 (0.0-0.1); Basophils % (Auto) 1.2 % (0.0-1.8); Eosinophils # (Auto) 0.4 K/mm3 (0.0-0.4); Hematocrit 44.2 % (35.5-45.6); Lymphocytes # (Auto) 3.1 K/mm3 (1.2-5.4); Lymphocytes % (Auto) 31.8 % (13.4-35.0); Mean Corpuscular HGB Conc 32 % (32-34); Mean Corpuscular Hemoglobin 27 pg (28-32); Mean Corpuscular Volume 85 fl (84-94); Monocytes # (Auto) 1.1 K/mm3 (0.0-0.8); Monocytes % (Auto) 11.2 % (0.0-7.3); Platelet Count 347 K/mm3 (140-440); Red Blood Count 5.19 M/mm3 (3.65-5.03); Red Cell Distribution Width 17.2 % (13.2-15.2)
[2018-03-26] MEDS: HumaLOG SUB-Q SCH ×4 (07:34→23:17)
[2018-03-26 07:35] LABS: Calcium 8.5 mg/dL (8.4-10.2)
[2018-03-26] MEDS: APRESOLINE PO SCH ×3 (08:00→20:31)
--- NOTE | 2018-03-26 08:15 | Ultrasound Report ---
ULTRASOUND RENAL BILATERAL HISTORY: Acute renal injury. TECHNIQUE: transabdominal ultrasound with color Doppler interrogation. FINDINGS: Scans of the kidneys show normal renal contours. There is normal central calyceal clustering and good preservation of the cortical thickness. There is no evidence of mass or hydronephrosis. The views of the bladder and the region of the ureters appear normal. IMPRESSION: Unremarkable renal ultrasound.
--- NOTE | 2018-03-26 10:03 | Progress Note ---
Assessment and Plan Acute HFpEF Accelerated hypertension Continue amlodipine 10 QDAY, hydralazine 100 TID, carvedilol BID Can follow up at outpatient with Dr. Marino as outpatient [phone] Noncompliance Reiterated the importance of compliance with medications Acute on chronic Kidney disease Consider renal consult Obesity Sleep apnea Diabetes Subjective Date of service: 03/26/18 Principal diagnosis: CHF, Accelerated HTN, KAREN Interval history: Patient sitting up in bed feels much better this morning. Patient denies chest pain or shortness of breath. Objective Vital Signs Temp Pulse Pulse Resp BP BP Pulse Ox 03/26/18 08:29 100 03/26/18 05:10 97.6 F 88 20 126/77 99 03/26/18 00:25 98.6 F 87 18 142/97 03/26/18 00:05 88 16 98 03/25/18 23:35 87 03/25/18 22:00 96 03/25/18 20:26 90 03/25/18 20:03 98.4 F 91 H 20 157/107 97 03/25/18 14:59 99.1 F 99 H 20 165/102 99 03/25/18 13:00 98.2 F 93 H 18 144/92 98 03/25/18 11:09 98.4 F 87 20 188/114 96 03/25/18 10:57 81 169/110 03/25/18 10:52 81 169/110 03/25/18 10:00 80 90 - Physical Examination General: Appears Well, No Apparent Distress HEENT: Positive: EOMI, Normocephaly, Mucus Membranes Moist Neck: Positive: neck supple, trachea midline Cardiac: Positive: Reg Rate and Rhythm Lungs: Positive: Normal Exam Neuro: Positive: Grossly Intact Abdomen: Positive: Soft, Active Bowel Sounds. Negative: Tender Skin: Positive: Clear. Negative: Rash Musculoskeletal: Normal Range of Motion Extremities: Present: normal, +1 Edema. Absent: edema - Labs and Meds Cardiac Enzymes 03/26/18 Range/Units 05:30 AST 12 (5-40) units/L Lipids 03/25/18 Range/Units Unknown Triglycerides 354 H (2-149) mg/dL Cholesterol 311 H (50-199) mg/dL HDL Cholesterol 38 L (40-59) mg/dL Cholesterol/HDL Ratio 8.18 % CBC 03/26/18 Range/Units 05:30 WBC 9.8 (4.5-11.0) K/mm3 RBC 5.19 H (3.65-5.03) M/mm3 Hgb 14.0 (11.8-15.2) gm/dl Hct 44.2 (35.5-45.6) % Plt Count 347 (140-440) K/mm3 Lymph # 3.1 (1.2-5.4) K/mm3 [place] # 1.1 H (0.0-0.8) K/mm3 Eos # 0.4 (0.0-0.4) K/mm3 Baso # 0.1 (0.0-0.1) K/mm3 Comprehensive Metabolic Panel 03/26/18 Range/Units 05:30 Sodium 134 L (137-145) mmol/L Potassium 4.2 (3.6-5.0) mmol/L Chloride 97.0 L (98-107) mmol/L Carbon Dioxide 20 L (22-30) mmol/L BUN 34 H (9-20) mg/dL Creatinine 2.5 H (0.8-1.5) mg/dL Glucose 156 H (75-100) mg/dL Calcium 8.5 (8.4-10.2) mg/dL AST 12 (5-40) units/L ALT 20 (7-56) units/L Alkaline Phosphatase 74 (35-129) units/L Total Protein 6.4 (6.3-8.2) g/dL Albumin 3.0 L (3.9-5) g/dL - Imaging and Cardiology EKG: image reviewed Echo: report reviewed (ECHO 03/29: EF 50-55%, moderate LVH) - EKG Sinus rhythms and dysrhythmias: sinus rhythm Repolarization changes or abnormalities: ST or T wave suggestive of ischemia
--- NOTE | 2018-03-26 13:18 | Discharge Summary ---
Providers - Providers Date of Admission: 03/24/18 05:27 Date of discharge: 03/26/18 Attending physician: ORLANDO MEDEL 03/24/18 05:27 Consult to Physician [CONS] Routine Comment: Consulting Provider: DENISHA MINER Physician Instructions: Reason For Exam: sob Primary care physician: SITE COORDINATOR Hospitalization Reason for admission: chest pain, KAREN from [facility] Condition: Stable Pertinent studies: Echo showed left ventricular ejection fraction of 50-55%. Chest x-ray showed no infiltrates or effusions. Pulmonary perfusion scan was within normal limits. Renal ultrasound was unremarkable. Procedures: None Hospital course: 42-year-old man history of hypertension, diabetes, sleep apnea, admitted for of shortness breath, PND and ankle extremity edema. He complains of phlegm, unclear what color it is. Since he was discharged from [facility] February 26, he has not taken any of his medications. Disposition: TO HOME OR SELFCARE Time spent for discharge: 35 mins Core Measure Documentation - Palliative Care Palliative Care/ Comfort Measures: Not Applicable - Core Measures Any of the following diagnoses?: heart failure - Heart Failure Discharge Requirements TONY/ARB for LVSD if EF <40%: Yes Beta romel at discharge: Yes Exam - Constitutional Vitals: Temp Pulse Resp BP Pulse Ox 98.1 F 88 18 169/109 98 03/26/18 12:20 03/26/18 12:20 03/26/18 12:20 03/26/18 12:20 03/26/18 12:20 General appearance: Present: no acute distress, well-nourished - EENT Eyes: Present: PERRL ENT: hearing intact, clear oral mucosa - Neck Neck: Present: supple, normal ROM - Respiratory Respiratory effort: normal Respiratory: bilateral: CTA - Cardiovascular Heart Sounds: Present: S1 & S2. Absent: rub, click - Extremities Extremities: pulses symmetrical, No edema - Abdominal General gastrointestinal: Present: soft, non-tender, non-distended, normal bowel sounds Male genitourinary: Present: deferred - Rectal Rectal Exam: deferred - Integumentary Integumentary: Present: clear, warm, dry - Musculoskeletal Musculoskeletal: strength equal bilaterally - Psychiatric Psychiatric: cooperative - Neurologic Neurologic: moves all extremities Plan Activity: advance as tolerated Diet: low fat, low cholesterol, low salt, diabetic Special Instructions: record daily weights, record daily BP diary, record blood sugar diary, hold Metformin Follow up with: PRIMARY CARE, [Primary Care Provider] - 3 Days Forms: AMA Form Prescriptions: amLODIPine [Norvasc] 10 mg PO QDAY #30 tablet Aspirin [Aspirin BABY CHEW TAB] 81 mg PO QDAY #30 tab.chew Carvedilol [Coreg] 12.5 mg PO BID #60 tablet Glimepiride [Amaryl] 4 mg PO BID #60 tablet hydrALAZINE [Apresoline TAB] 100 mg PO TID #90 tab Sitagliptin Phosphate [Januvia] 100 mg PO DAILY #30 tablet
[2018-03-26] MEDS: NORVASC PO SCH (14:17)
[2018-03-26] MEDS: AMARYL PO SCH ×2 (14:18→23:15)
[2018-03-26] MEDS: LOVENOX SUB-Q SCH (14:18)
[2018-03-26] MEDS: BABY ASPIRIN PO SCH (14:18)
[2018-03-26] MEDS: COREG PO SCH ×2 (14:19→23:15)
[2018-03-26] MEDS: SODIUM CHLORIDE FLUSH SYRINGE 10 ML IV SCH ×2 (14:19→23:17)
--- NOTE | 2018-03-26 17:22 | Event Note ---
Date: 03/26/18 Hold discharge because of worsening blood pressure (SBP in the 180s-190s) and creatinine
[2018-03-26] MEDS: CATAPRES PO SCH ×2 (18:27→23:15)
[2018-03-26] MEDS ORDERED: NACL 0.9% 1000 ML 1,000 ML IV ONE (18:38)
[2018-03-26] MEDS ORDERED: CATAPRES PO SCH (20:00)
[2018-03-27 05:56] LABS: Basophils % (Auto) 0.2 % (0.0-1.8); Eosinophils # (Auto) 0.3 K/mm3 (0.0-0.4); Eosinophils % (Auto) 4.5 % (0.0-4.3); Hematocrit 41.8 % (35.5-45.6); Hemoglobin 13.8 gm/dl (11.8-15.2); Lymphocytes # (Auto) 2.4 K/mm3 (1.2-5.4); Lymphocytes % (Auto) 31.1 % (13.4-35.0); Mean Corpuscular HGB Conc 33 % (32-34); Mean Corpuscular Hemoglobin 28 pg (28-32); Mean Corpuscular Volume 85 fl (84-94); Monocytes % (Auto) 13.5 % (0.0-7.3); Platelet Count 300 K/mm3 (140-440); Red Blood Count 4.92 M/mm3 (3.65-5.03)
[2018-03-27 06:19] LABS: Albumin 2.8 g/dL (3.9-5); Calcium 8.3 mg/dL (8.4-10.2)
[2018-03-27] MEDS: CATAPRES PO SCH (06:59)
--- NOTE | 2018-03-27 08:22 | Progress Note ---
Assessment and Plan - Hypertensive urgency, malignant improved Optimize BP control 2gm Na+ diet - Heart failure Pending systolic function evaluation Continue with strict Is and OS Daily weight ACEI, BB, diuretic and spironolactone - T2DM SSI Consistent CHO diet. check A1c - Renal failure probably chronic Avoid nephrotoxic substance Renal diet, Renal US Nephrology consulted - Sleep apnea cpap at night disposition: D/c home if okay with nephrology DVT prophylaxis with levenox Subjective Date of service: 03/27/18 Principal diagnosis: CHF, Accelerated HTN, KAREN Interval history: shortness of breath improving Objective - Constitutional Vitals: Vital Signs - 12hr 03/26/18 03/26/18 03/26/18 20:22 22:00 23:08 Temperature 98.6 F Pulse Rate 85 83 86 Respiratory 18 Rate Blood Pressure 138/92 117/77 O2 Sat by Pulse 95 95 97 Oximetry 03/26/18 03/27/18 03/27/18 23:15 00:16 05:15 Temperature 98.3 F 98.5 F Pulse Rate 87 84 81 Respiratory 20 20 Rate Blood Pressure 117/77 123/80 125/71 O2 Sat by Pulse 94 96 Oximetry General appearance: Present: no acute distress, well-nourished - EENT Eyes: PERRL, EOM intact - Neck Neck: supple, normal ROM - Respiratory Respiratory effort: normal Respiratory: bilateral: CTA - Cardiovascular Rhythm: regular Heart Sounds: Present: S1 & S2. Absent: gallop, rub Extremities: pulses intact, No edema, normal color, Full ROM - Gastrointestinal General gastrointestinal: Present: soft, non-tender, non-distended, normal bowel sounds - Integumentary Integumentary: clear, warm, dry - Musculoskeletal Musculoskeletal: 1, strength equal bilaterally - Neurologic Neurologic: moves all extremities - Psychiatric Psychiatric: memory intact, appropriate mood/affect, intact judgment & insight - Labs CBC & Chem 7: 03/27/18 05:02 03/27/18 05:02 Labs: Abnormal lab results 03/26/18 03/26/18 03/27/18 Range/Units 11:43 22:39 05:02 RDW 17.0 H (13.2-15.2) % Cobb % (Auto) 13.5 H (0.0-7.3) % Eos % (Auto) 4.5 H (0.0-4.3) % Cobb # 1.0 H (0.0-0.8) K/mm3 BUN (9-20) mg/dL Creatinine (0.8-1.5) mg/dL POC Glucose 182 H 293 H (70-105) Calcium (8.4-10.2) mg/dL Total Protein (6.3-8.2) g/dL Albumin (3.9-5) g/dL 03/27/18 03/27/18 Range/Units 05:02 06:52 RDW (13.2-15.2) % Cobb % (Auto) (0.0-7.3) % Eos % (Auto) (0.0-4.3) % Cobb # (0.0-0.8) K/mm3 BUN 41 H (9-20) mg/dL Creatinine 2.7 H (0.8-1.5) mg/dL POC Glucose 168 H (70-105) Calcium 8.3 L (8.4-10.2) mg/dL Total Protein 6.2 L (6.3-8.2) g/dL Albumin 2.8 L (3.9-5) g/dL
[2018-03-27] MEDS: HumaLOG SUB-Q SCH ×3 (08:29→13:01)
[2018-03-27] MEDS: APRESOLINE PO SCH ×2 (08:31→14:09)
[2018-03-27] MEDS: AMARYL PO SCH (09:31)
[2018-03-27] MEDS: BABY ASPIRIN PO SCH (09:31)
[2018-03-27] MEDS: NORVASC PO SCH (09:31)
[2018-03-27] MEDS: SODIUM CHLORIDE FLUSH SYRINGE 10 ML IV SCH (09:32)
[2018-03-27] MEDS: LOVENOX SUB-Q SCH (09:32)
[2018-03-27] MEDS: COREG PO SCH (09:32)
--- NOTE | 2018-03-27 10:34 | Progress Note ---
Assessment and Plan Acute HFpEF Accelerated hypertension Continue amlodipine 10 QDAY, hydralazine 100 TID, carvedilol BID Optimize anti-hypertensive regimen - d/c clonidine and initiate Imdur and titrate Imdur as necessary. Noncompliance Reiterated the importance of compliance with medications Acute on chronic Kidney disease Renal indices worsening - Consult nephrology Obesity Sleep apnea Diabetes The patient has been seen in conjunction with Dr. Trevino who agrees with the assessment and plan of care. Subjective Date of service: 03/27/18 Principal diagnosis: CHF, Accelerated HTN, KAREN Interval history: pt ambulating around room without difficulty, no current cardiac complaints. pt reports that he needs to go home and go back to work. BPs labile. Objective Last Vital Signs Temp 98.1 F 03/27/18 08:21 Pulse 90 03/27/18 08:21 Resp 18 03/27/18 08:21 BP 173/106 03/27/18 08:21 Pulse Ox 98 03/27/18 10:14 - Physical Examination General: Appears Well, No Apparent Distress HEENT: Positive: EOMI, Normocephaly, Mucus Membranes Moist Neck: Positive: neck supple, trachea midline Cardiac: Positive: Reg Rate and Rhythm, S1/S2 Lungs: Positive: clear to auscultation Neuro: Positive: Grossly Intact Abdomen: Positive: Soft, Active Bowel Sounds. Negative: Tender Skin: Positive: Clear. Negative: Rash Musculoskeletal: Normal Range of Motion Extremities: Present: normal, +1 Edema. Absent: edema - Labs and Meds Cardiac Enzymes 03/27/18 Range/Units 05:02 AST 12 (5-40) units/L CBC 03/27/18 Range/Units 05:02 WBC 7.7 (4.5-11.0) K/mm3 RBC 4.92 (3.65-5.03) M/mm3 Hgb 13.8 (11.8-15.2) gm/dl Hct 41.8 (35.5-45.6) % Plt Count 300 (140-440) K/mm3 Lymph # 2.4 (1.2-5.4) K/mm3 [place] # 1.0 H (0.0-0.8) K/mm3 Eos # 0.3 (0.0-0.4) K/mm3 Baso # 0.0 (0.0-0.1) K/mm3 Comprehensive Metabolic Panel 03/27/18 Range/Units 05:02 Sodium 138 (137-145) mmol/L Potassium 4.7 (3.6-5.0) mmol/L Chloride 104.5 (98-107) mmol/L Carbon Dioxide 22 (22-30) mmol/L BUN 41 H (9-20) mg/dL Creatinine 2.7 H (0.8-1.5) mg/dL Calcium 8.3 L (8.4-10.2) mg/dL AST 12 (5-40) units/L ALT 19 (7-56) units/L Alkaline Phosphatase 73 (35-129) units/L Total Protein 6.2 L (6.3-8.2) g/dL Albumin 2.8 L (3.9-5) g/dL - Imaging and Cardiology EKG: image reviewed Echo: report reviewed (ECHO 03/29: EF 50-55%, moderate LVH) - Telemetry EKG Rhythm: Sinus Rhythm - EKG Sinus rhythms and dysrhythmias: sinus rhythm Repolarization changes or abnormalities: ST or T wave suggestive of ischemia
[2018-03-27 11:49] VITALS: BP 152/95
[2018-03-27] MEDS ORDERED: IMDUR PO SCH (13:00)
--- NOTE | 2018-03-27 15:56 | Event Note ---
Date: 03/27/18 Discussed with Gun Profiler who suggested that pt can be discharged Pt is therefore discharged today
--- NOTE | 2018-03-27 16:19 | Consultation ---
History of Present Illness - Reason for Consult Consult date: 03/27/18 acute renal failure, chronic renal failure Requesting physician: ORLANDO MEDEL - History of Present Illness This is a 42-year-old AA man with history of hypertension, diabetes, sleep apnea, diagnosed when he was incarcerated about 15 months ago, who was initially admitted with complaints of shortness breath, PND and ankle extremity edema. Since he was [facility] February [facility], he has not taken any of his medications. on admission pt was found to have elevate BP as high as 210/120mmhg , which is now improved on current BP regimen. Labs showed elevated BUN/Cr at 22 /2.4mg/dl which was gradually increasing to 41/2.7mg/dl. UA also showed e/o significant proteinuria > 500mg along with mild hematuria. Renal consult was requested for further management of abnormal renal function. pt is not aware of any previous renal disease, did not have medical f/u prior to incarceration. Denies recent NSAIDs use or IV contrast exposure. Past History Past Medical History: diabetes, hypertension, other (JULIAN) Past Surgical History: No surgical history Social history: single (no children), smoking, other (social drinker) Family history: denies: CAD Medications and Allergies Allergies Allergy/AdvReac Type Severity Reaction Status Date / Time No Known Allergies Allergy Verified 03/24/18 04:38 Home Medications Medication Instructions Recorded Confirmed Last Taken Type Aspirin [Aspirin BABY CHEW TAB] 81 mg PO QDAY #30 tab.chew 03/26/18 Unknown Rx Carvedilol [Coreg] 12.5 mg PO BID #60 tablet 03/26/18 Unknown Rx Glimepiride [Amaryl] 4 mg PO BID #60 tablet 03/26/18 Unknown Rx Sitagliptin Phosphate [Januvia] 100 mg PO DAILY #30 tablet 03/26/18 Unknown Rx amLODIPine [Norvasc] 10 mg PO QDAY #30 tablet 03/26/18 Unknown Rx hydrALAZINE [Apresoline TAB] 100 mg PO TID #90 tab 03/26/18 Unknown Rx cloNIDine [Catapres] 0.2 mg PO TID #90 tablet 03/27/18 Unknown Rx Review of Systems All systems: negative Cardiovascular: edema, shortness of breath, dyspnea on exertion Exam - Vital Signs Vital signs: Vital Signs Temp Pulse Resp BP Pulse Ox 98.2 F 93 H 18 209/123 97 03/24/18 02:37 03/24/18 02:37 03/24/18 02:37 03/24/18 02:37 03/24/18 02:37 - General Appearance General appearance: well-developed, well-nourished, appears stated age, obese EENT: ATNC, PERRL, mucous membranes moist Neck: Present: neck supple Respiratory: Clear to Ascultation Heart: regular, S1S2 Gastrointestinal: Present: normoactive bowel sounds Integumentary: no rash, other (trace edema b/l LE ) Neurologic: no focal deficit, alert and oriented x3, strength 5/5, CN 3-12 intact Psychiatric: mood/affect appropriate, cooperative Results - Lab Results 03/27/18 05:02 03/27/18 05:02 Most recent lab results Calcium 8.3 mg/dL (8.4-10.2) L 03/27/18 05:02 Magnesium 1.90 mg/dL (1.7-2.3) 03/26/18 05:30 Urine Creatinine 15.5 mg/dL (0.1-20.0) 03/25/18 Unknown Laboratory Tests 03/24/18 03/24/18 03/25/18 05:48 Unknown Unknown Calcium Magnesium Total Bilirubin AST ALT Alkaline Phosphatase Total Creatine Kinase 805 H CK-MB (CK-2) 7.7 H CK-MB (CK-2) Rel Index 0.9 NT-Pro-B Natriuret Pep 1418 H Total Protein Albumin Albumin/Globulin Ratio Triglycerides Cholesterol LDL Cholesterol Direct HDL Cholesterol Cholesterol/HDL Ratio Urine Creatinine 15.5 Urine Microalbumin 56.2 H Microalb/Creat Ratio 3625.8 03/25/18 03/26/18 03/27/18 Unknown 05:30 05:02 Calcium 8.5 Magnesium 1.90 Total Bilirubin 0.20 0.20 AST 12 12 ALT 20 19 Alkaline Phosphatase 74 73 Total Creatine Kinase CK-MB (CK-2) CK-MB (CK-2) Rel Index NT-Pro-B Natriuret Pep Total Protein 6.4 6.2 L Albumin 3.0 L 2.8 L Albumin/Globulin Ratio 0.9 0.8 Triglycerides 354 H Cholesterol 311 H LDL Cholesterol Direct 223 H HDL Cholesterol 38 L Cholesterol/HDL Ratio 8.18 Urine Creatinine Urine Microalbumin Microalb/Creat Ratio Assessment and Plan - Patient Problems (1) CKD (chronic kidney disease) Status: Chronic Qualifiers: Chronic kidney disease stage: stage 3 (moderate) Qualified Code(s): N18.3 - Chronic kidney disease, stage 3 (moderate) Plan to address problem: suspect chronic kidney disease, 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 Urine MALB/Cr ratio >3.5g/g, nephrotic range. Given significant proteinuria/hematuria will obtain further w/u for acute vasculitis/ GN incl. BALAJI, ANCA, Anti GBM, C3/4. Superimposed KAREN in the setting of hypertensive emergency possible. pt would benefit from renal biopsy however pt is current on ASA, which has to be held for >5 days prior to biopsy. Pt states however that he has to leave hospital due to his job. Reinforced need for outpatient f/u with PCP/nephrology for further evaluation of KAREN/CKD, given office information to pt. TONY-I/ARB on hold until eGFR is in steady state. pt understands. D/w Dr Medel. (2) Diabetes mellitus Status: Chronic Qualifiers: Diabetes mellitus type: type 2 Plan to address problem: glucose control as per primary attending (3) HTN (hypertension) Status: Acute Plan to address problem: BP improved on current BP meds. reinforced compliance with meds to avoid further cardiac/renal/vascular complications
== END 2018-03-27 16:06 | disposition home or self-care (01) | DRG 682 ==
LOC: ED 02:38 → 4A 05:27
PROVIDERS: ADMIT Internal Medicine; ATTEND Family Medicine
DX: N17.9 Acute kidney failure, unspecified (principal); I50.31 Acute diastolic (congestive) heart failure; I16.1 Hypertensive emergency; Z68.41 Body mass index [BMI] 40.0-44.9, adult; I13.0 Hypertensive heart and chronic kidney disease with heart failure and stage 1 through stage 4 chronic kidney disease, or unspecified chronic kidney disease; I16.0 Hypertensive urgency; R06.02 Shortness of breath; E11.9 Type 2 diabetes mellitus without complications; G47.30 Sleep apnea, unspecified; E66.9 Obesity, unspecified; F17.290 Nicotine dependence, other tobacco product, uncomplicated; N18.9 Chronic kidney disease, unspecified; G47.33 Obstructive sleep apnea (adult) (pediatric); Z79.82 Long term (current) use of aspirin; Z82.49 Family history of ischemic heart disease and other diseases of the circulatory system; Z91.14 Patient's other noncompliance with medication regimen
CPT/HCPCS: 36415; 71046; 76770; 78582; 80048; 80053; 80061; 81001; 82043; 82550; 82553; 82962; 83036; 83520; 83735; 83880; 84484; 85025; 85379; 86021; 86038; 86160; 93005; 93010; 93306; 94660; 94760; 96374; 99406; A9540; A9558; J0360; J1650; J1815; J1940; J7030

== ENCOUNTER 2018-04-03 20:20 | Emergency (ER) | payer SELFPAY ==
[2018-04-03] MEDS ORDERED: NORCO 5/325 ONE (20:52)
[2018-04-03] MEDS ORDERED: ZOFRAN ODT ONE (20:52)
[2018-04-03 21:56] LABS: Basophils # (Auto) 0.2 K/mm3 (0.0-0.1); Basophils % (Auto) 2.2 % (0.0-1.8); Eosinophils # (Auto) 0.3 K/mm3 (0.0-0.4); Hematocrit 40.1 % (35.5-45.6); Lymphocytes # (Auto) 3.1 K/mm3 (1.2-5.4); Mean Corpuscular HGB Conc 33 % (32-34); Mean Corpuscular Hemoglobin 28 pg (28-32); Mean Corpuscular Volume 86 fl (84-94); Monocytes # (Auto) 0.9 K/mm3 (0.0-0.8); Monocytes % (Auto) 9.6 % (0.0-7.3); Platelet Count 295 K/mm3 (140-440); Red Blood Count 4.69 M/mm3 (3.65-5.03); Red Cell Distribution Width 16.5 % (13.2-15.2)
[2018-04-03 21:59] LABS: Albumin 3.4 g/dL (3.9-5); Calcium 8.6 mg/dL (8.4-10.2)
[2018-04-03] MEDS ORDERED: DUONEB *Not for PRN Use IH ONE (22:52)
--- NOTE | 2018-04-03 23:33 | XRay Report ---
FINAL REPORT PROCEDURE: XR CHEST ROUTINE 2V TECHNIQUE: PA and lateral chest radiographs were obtained. CPT 33255 HISTORY: JOEY. COMPARISON: Chest radiograph dated 03/24/2018. FINDINGS: Heart: Mild cardiomegaly. Mediastinum/Vessels: Normal. Lungs/Pleural space: Stable subtle perihilar indistinctness and left lower lobe linear opacity. Minimal thickening of the right fissure. Bony thorax: Mild multilevel disc space narrowing and osteophytes. Stable mild wedge compression in the mid/lower thoracic spine. Other: IMPRESSION: Mild cardiomegaly. Stable subtle perihilar indistinctness and left lower lobe linear opacity, consider mild congestive heart failure with atelectasis. Trace right pleural fluid.
--- NOTE | 2018-04-04 00:28 | Emergency Department Report ---
ED Shortness of Breath HPI - General Chief Complaint: Dyspnea/Respdistress Stated Complaint: SOB Time Seen by Provider: 04/03/18 22:47 Source: patient Mode of arrival: Ambulatory Limitations: No Limitations - History of Present Illness Initial Comments: Presents with progressive onset shortness of breath past couple days. It is exertional, positional, and associated with bilateral leg swelling. He is admitted to the hospital couple weeks ago for similar complaints. They worked him up and found that he had back kidneys and high blood pressure. Patient does have history of smoking. Also endorses chest tightness, but no shortness of breath or coughing. Afebrile. Patient states that he has been compliant with his home medication. Denies drug use. - Related Data Previous Rx's Medication Instructions Recorded Last Taken Type Aspirin [Aspirin BABY CHEW TAB] 81 mg PO QDAY #30 tab.chew 03/26/18 Unknown Rx Carvedilol [Coreg] 12.5 mg PO BID #60 tablet 03/26/18 Unknown Rx Glimepiride [Amaryl] 4 mg PO BID #60 tablet 03/26/18 Unknown Rx amLODIPine [Norvasc] 10 mg PO QDAY #30 tablet 03/26/18 Unknown Rx hydrALAZINE [Apresoline TAB] 100 mg PO TID #90 tab 03/26/18 Unknown Rx Allergies Allergy/AdvReac Type Severity Reaction Status Date / Time No Known Allergies Allergy Verified 03/24/18 04:38 ED Review of Systems ROS: Stated complaint: SOB Other details as noted in HPI Comment: All other systems reviewed and negative Respiratory: SOB with exertion Cardiovascular: edema, other (chest tightness) ED Past Medical Hx - Past Medical History Previous Medical History?: Yes Hx Hypertension: Yes Hx Congestive Heart Failure: (pt.is unaware. per pt.) Hx Diabetes: Yes Hx Asthma: No Additional medical history: sleep Apnea/CPAP - Surgical History Past Surgical History?: No - Social History Smoking Status: Current Every Day Smoker Substance Use Type: Alcohol, Marijuana - Medications Home Medications: Home Medications Medication Instructions Recorded Confirmed Last Taken Type Aspirin [Aspirin BABY CHEW TAB] 81 mg PO QDAY #30 tab.chew 03/26/18 04/04/18 Unknown Rx Carvedilol [Coreg] 12.5 mg PO BID #60 tablet 03/26/18 04/04/18 Unknown Rx Glimepiride [Amaryl] 4 mg PO BID #60 tablet 03/26/18 04/04/18 Unknown Rx amLODIPine [Norvasc] 10 mg PO QDAY #30 tablet 03/26/18 04/04/18 Unknown Rx hydrALAZINE [Apresoline TAB] 100 mg PO TID #90 tab 03/26/18 04/04/18 Unknown Rx ED Physical Exam - General Limitations: No Limitations General appearance: alert, in no apparent distress - Head Head exam: Present: atraumatic, normocephalic - Eye Eye exam: Present: normal appearance - ENT ENT exam: Present: mucous membranes moist - Neck Neck exam: Present: normal inspection - Respiratory Respiratory exam: Present: normal lung sounds bilaterally. Absent: respiratory distress - Cardiovascular Cardiovascular Exam: Present: regular rate, normal rhythm. Absent: systolic murmur, diastolic murmur, rubs, gallop, JVD - GI/Abdominal GI/Abdominal exam: Present: soft, normal bowel sounds - Rectal Rectal exam: Present: deferred - Extremities Exam Extremities exam: Present: normal inspection, pedal edema (2+ bilateral) - Back Exam Back exam: Present: normal inspection - Neurological Exam Neurological exam: Present: alert, oriented X3 - Psychiatric Psychiatric exam: Present: normal affect, normal mood - Skin Skin exam: Present: warm, dry, intact, normal color. Absent: rash ED Course Vital Signs 04/03/18 04/03/18 04/03/18 20:21 22:40 23:00 Temperature 98.2 F 97.9 F Pulse Rate 90 84 86 Pulse Rate [ Anterior Bilateral Throughout] Respiratory 16 16 17 Rate Respiratory Rate [Anterior Bilateral Throughout] Blood Pressure 166/93 134/85 Blood Pressure 121/77 [Left] O2 Sat by Pulse 97 98 97 Oximetry 04/03/18 04/03/18 04/04/18 23:09 23:24 00:00 Temperature Pulse Rate 87 Pulse Rate [ 82 94 H Anterior Bilateral Throughout] Respiratory 22 Rate Respiratory 12 18 Rate [Anterior Bilateral Throughout] Blood Pressure 141/72 Blood Pressure [Left] O2 Sat by Pulse 95 Oximetry 04/04/18 01:00 Temperature Pulse Rate 87 Pulse Rate [ Anterior Bilateral Throughout] Respiratory 20 Rate Respiratory Rate [Anterior Bilateral Throughout] Blood Pressure 147/89 Blood Pressure [Left] O2 Sat by Pulse 94 Oximetry ED Medical Decision Making - Lab Data Result diagrams: 04/03/18 21:34 04/03/18 21:34 - EKG Data -: EKG Interpreted by Me EKG shows normal: sinus rhythm, axis, intervals, QRS complexes - EKG Data When compared to previous EKG there are: no significant change Interpretation: unchanged when compared t, nonspecific ST-T wave kermit - Radiology Data Radiology results: image reviewed - Medical Decision Making 42-year-old male with past medical history of hypertension, CK-MB, diabetes that presents with progressive onset shortness of breath. Patient is well- appearing, in no respiratory distress. However, he clinically looks like he is fluid overloaded. Chest x-ray shows no focal process. BNP is mildly elevated with a troponin of 0.08. EKG shows diffuse T-wave inversions, unchanged from previous. I am concerned for mild CHF exacerbation. Patient has been given 20 mg IV Lasix. He does have history of CKD, but his renal function has been improving since his last hospital admission. Will repeat his troponin. If it is down trending, patient should be discharged with 20 mg by mouth Lasix daily for 2 weeks. If The number is elevated, I recommended patient be admitted for further management. Pt has been signed out to Dr. Genevieve Pedraza. - Differential Diagnosis ACS, chf exacerbation, pna, arrhythmia, ptx, pe Critical care attestation.: If time is entered above; I have spent that time in minutes in the direct care of this critically ill patient, excluding procedure time. ED Disposition Clinical Impression: Acute exacerbation of CHF (congestive heart failure), CKD (chronic kidney disease) Disposition: Z- MED SCREENING EXAM-CONT Is pt being admited?: No Condition: Stable Instructions: Heart Failure (ED) Additional Instructions: Please follow up with your family doctor or Er in 2 weeks to have your electrolytes/renal function rechecked and for possible refills of your lasix. Referrals: PRIMARY CARE, [Primary Care Provider] - 3-5 Days
[2018-04-04] MEDS ORDERED: LASIX IV ONE (00:29)
[2018-04-04 01:19] VITALS: BP 147/89
[2018-04-04 02:43] LABS: Amorphous Crystals,Urine Few; Bacteria,Urine 2+ /HPF (Negative); Bilirubin,Urine NEG (Negative); Blood,Urine SM (Negative); Color,Urine Yellow (Yellow); Mucus,Urine FEW /HPF; Urobilinogen,Urine < 2.0 mg/dL (<2.0)
[2018-04-04 03:03] LABS: Chol/HDL Ratio 7.94 %
== END 2018-04-04 04:20 | disposition home or self-care (01) ==
LOC: ED 20:20
DX: I13.0 Hypertensive heart and chronic kidney disease with heart failure and stage 1 through stage 4 chronic kidney disease, or unspecified chronic kidney disease (principal); E11.22 Type 2 diabetes mellitus with diabetic chronic kidney disease; N18.9 Chronic kidney disease, unspecified; I50.9 Heart failure, unspecified; F17.200 Nicotine dependence, unspecified, uncomplicated; F12.10 Cannabis abuse, uncomplicated
CPT/HCPCS: 36415; 71046; 80053; 80061; 81001; 83880; 84484; 85025; 93005; 93010; 94640; 96374; 99284; J1940; Q0162